=== PATIENT | female | born 1965 ===

== ENCOUNTER 2017-03-22 08:41 | Day surgery (SDC) | payer OTHER ==
[~2017-03-22] VITALS: Ht 162.6 cm; Wt 69.4 kg
[~2017-03-22 08:41] MED LIST: CLON.1 PO; DULO30 PO; DULO60 PO; Desyrel50 MG PO; HYDCHL12.5 PO; INSULANPEN; INSULANPEN SC; LINZESS290 MCG PO; Lisinopril2.5 MG; Lisinopril2.5 MG PO; METF500 PO; Metformin HCl1000 MG PO; Novolog Fl100 UNIT/1; Novolog100 UNIT/1 SC; PRAV20 PO; PRAVASTATIN SOD10 MG PO; Senna Plus Tab1 EACH PO; TRAM50 PO; TRAZ50 PO
[2017-03-22] MEDS ORDERED: NAPR500 PO (10:28)
== END 2017-03-22 13:15 | disposition home or self-care (01) ==
LOC: ORSCMMR 08:41 → ORD 10:15 → ORSCMMR 10:15
DX: E83.119 Hemochromatosis, unspecified (principal); I10 Essential (primary) hypertension; E11.9 Type 2 diabetes mellitus without complications; M79.7 Fibromyalgia; B19.20 Unspecified viral hepatitis C without hepatic coma; F17.210 Nicotine dependence, cigarettes, uncomplicated; Z79.4 Long term (current) use of insulin; Z79.899 Other long term (current) drug therapy
CPT/HCPCS: 77001; 82947; C1788; J0690; J1642; J1885; J2250; J3010; J7120

== ENCOUNTER → 2017-10-23 | Outpatient (CLI) | payer OTHER ==
[~2017-10-23] MED LIST changes: +NAPR500 PO
[2017-10-23 14:28] LABS: Hemoglobin 13.3 g/dL (11.5-16.0); Mean Corpuscular HGB 36.1 pg (26.0-34.0); Mean Corpuscular Volume 103 fL (80-100); Mean Platelet Volume 11.7 fL (9.1-12.4); Platelet Count 273 K/mm3 (150-400); RDW Coefficient Variation 11.7 % (11.7-14.2); RDW Standard Deviation 44.3 fL (35.1-46.3); Red Blood Cell Count 3.68 M/mm3 (3.80-5.20)
[2017-10-23 14:40] LABS: International Normalized Ratio 0.97
[2017-10-23 14:56] LABS: Alanine Aminotransfer (ALT/SGP 39 U/L (12-78); Albumin, Blood 3.6 g/dL (3.4-5.0); Albumin/Globulin Ratio 0.9 (0.8-1.8); Alk Phos 101 U/L (50-136); Anion Gap 8 mmol/L (6-16); Aspartate Aminotrans (AST/SGOT 16 U/L (12-37); Bilirubin, Direct <0.1 mg/dL (0.0-0.3); Bilirubin, Total 0.5 mg/dL (0.1-1.0); Blood Urea Nitrogen 12 mg/dL (8-24); Bun/Creatinine Ratio 30.5 (12.0-20.0); CO2, Blood 28 mmol/L (21-32); Calcium, Blood 9.2 mg/dL (8.5-10.1); Chloride, Blood 99 mmol/L (98-108); Creatinine, Blood 0.39 mg/dL (0.40-1.00); Globulin, Blood 4.1 g/dL (2.2-4.0); Glomerular Filtration Rate >60 (60-); Glucose, Blood 395 mg/dL (70-99); Potassium, Blood 3.7 mmol/L (3.5-5.5); Sodium, Blood 135 mmol/L (136-145); Total Protein, Blood 7.7 g/dL (6.4-8.2)
== END ==
LOC: LAB SHORT 14:00 → LAB 14:00
PROVIDERS: Physician Assistant Medical
DX: B18.2 Chronic viral hepatitis C (principal)
CPT/HCPCS: 36415; 80053; 82248; 85027; 85610

== ENCOUNTER → 2017-11-02 | Outpatient (CLI) | payer OTHER ==
[~2017-11-02] MED LIST changes: +CRUTCH2 XX
== END ==
LOC: LAB EV 19:36 → LAB SHORT 19:36
DX: S70.11XA Contusion of right thigh, initial encounter (principal)
CPT/HCPCS: 82550

== ENCOUNTER 2017-11-03 10:19 | Emergency (ER) | payer OTHER ==
[~2017-11-03] VITALS: Ht 170.2 cm; Wt 99.8 kg
[~2017-11-03 10:19] MED LIST changes: -CRUTCH2 XX
[2017-11-03 11:48] LABS: BASOPHILS ABSOLUTE AUTO 0.08 K/mm3 (0.00-0.23); BASOPHILS PERCENT AUTO 1 % (0-2); EOSINOPHILS ABSOLUTE AUTO 0.21 K/mm3 (0.00-0.68); EOSINOPHILS PERCENT AUTO 3 % (0-6); Hemoglobin 11.7 g/dL (11.5-16.0); IMMATURE GRAN ABSOLUTE AUTO 0.03 K/mm3 (0.00-0.10); IMMATURE GRAN PERCENT AUTO 0 % (0-1); LYMPHOCYTES ABSOLUTE AUTO 2.11 K/mm3 (0.84-5.20); LYMPHOCYTES PERCENT AUTO 26 % (21-46); MONOCYTES ABSOLUTE AUTO 0.67 K/mm3 (0.16-1.47); MONOCYTES PERCENT AUTO 8 % (4-13); Mean Corpuscular HGB 35.7 pg (26.0-34.0); Mean Corpuscular HGB Conc 34.4 g/dL (31.5-36.5); Mean Corpuscular Volume 104 fL (80-100); Mean Platelet Volume 11.2 fL (9.1-12.4); NEUTROPHILS ABSOLUTE AUTO 4.94 K/mm3 (1.96-9.15); NEUTROPHILS PERCENT AUTO 62 % (41-73); Platelet Count 255 K/mm3 (150-400); RDW Coefficient Variation 11.8 % (11.7-14.2); RDW Standard Deviation 45.1 fL (35.1-46.3); Red Blood Cell Count 3.28 M/mm3 (3.80-5.20); White Blood Cell Count 8.04 K/mm3 (4.00-11.30)
[2017-11-03 12:02] LABS: Alanine Aminotransfer (ALT/SGP 28 U/L (12-78); Albumin, Blood 3.3 g/dL (3.4-5.0); Albumin/Globulin Ratio 0.9 (0.8-1.8); Alk Phos 74 U/L (50-136); Anion Gap 5 mmol/L (6-16); Aspartate Aminotrans (AST/SGOT 21 U/L (12-37); Bilirubin, Total 0.3 mg/dL (0.1-1.0); Blood Urea Nitrogen 13 mg/dL (8-24); Bun/Creatinine Ratio 31.2 (12.0-20.0); CO2, Blood 29 mmol/L (21-32); CPK Creatine Kinase 54 U/L (26-193); Calcium, Blood 8.7 mg/dL (8.5-10.1); Chloride, Blood 101 mmol/L (98-108); Creatinine, Blood 0.42 mg/dL (0.40-1.00); Globulin, Blood 3.6 g/dL (2.2-4.0); Glomerular Filtration Rate >60 (60-); Glucose, Blood 382 mg/dL (70-99); Sodium, Blood 135 mmol/L (136-145); Total Protein, Blood 6.9 g/dL (6.4-8.2)
[2017-11-03] MEDS ORDERED: CRUTCH2 XX (12:18)
== END 2017-11-03 13:10 | disposition home or self-care (01) ==
LOC: ER 10:19
PROVIDERS: Internal Medicine
DX: S87.81XA Crushing injury of right lower leg, initial encounter (principal); S92.411A Displaced fracture of proximal phalanx of right great toe, initial encounter for closed fracture; I10 Essential (primary) hypertension; E11.9 Type 2 diabetes mellitus without complications; E78.5 Hyperlipidemia, unspecified; F17.200 Nicotine dependence, unspecified, uncomplicated; Z79.899 Other long term (current) drug therapy; Z79.4 Long term (current) use of insulin; W20.8XXA Other cause of strike by thrown, projected or falling object, initial encounter
CPT/HCPCS: 29515; 80053; 82550; 85025; 96374; 99283-25; J1642

== ENCOUNTER 2018-07-03 09:51 | Day surgery (SDC) | payer OTHER ==
[~2018-07-03] VITALS: Ht 167.6 cm; Wt 65.0 kg
[~2018-07-03 09:51] MED LIST changes: +CRUTCH2 XX; +CYCL10 PO; +IBUP800 PO; +NOVOLOG FL100 UNIT/1 SC; +OXYC10TA19 PO
[2018-07-03] MEDS ORDERED: ESCI20 (11:23)
[2018-07-03] MEDS ORDERED: Neurontin300 MG (11:24)
--- NOTE | 2018-07-03 13:32 | NUR ---
07/03/18 1332 Megha Unger LATE ENTRY AT 1130 i ACCESSED THE PATIENTS MEDIPORT LEFT SIDE 20G 1 IN. PT TOLERATED WELL. FLUSHED 10CC NS. PATENT. BLOOD DRAWN RIGHT FOOT AMONIA LEVEL PER MD ORDER. MEGHA UNGER RN
--- NOTE | 2018-07-03 13:33 | NUR ---
07/03/18 1333 Megha Unger LATE ENTRY AT 1240 DC MEDIPORT. FLUSHED WITH 10CC NS THEN 500 UNITS HEPARIN. PATENT. NO BLEEDING AT SITE AFTER DC. BANDAID PLACED. PT TOLERATED WELL. MEGHA UNGER RN
== END 2018-07-03 13:00 | disposition home or self-care (01) ==
LOC: ORSCSDS 09:51
PROVIDERS: Internal Medicine Gastroenterology
PROC: 0DB68ZX Excision of Stomach, Via Natural or Artificial Opening Endoscopic, Diagnostic (ICD-10-PCS; principal; 2018-07-03 11:30)
DX: K74.60 Unspecified cirrhosis of liver (principal); Z13.810 Encounter for screening for upper gastrointestinal disorder; B19.20 Unspecified viral hepatitis C without hepatic coma; K76.6 Portal hypertension; K31.89 Other diseases of stomach and duodenum; K59.00 Constipation, unspecified
CPT/HCPCS: 82140; 82947; 88305; 88342; J1642; J2704; J7120

== ENCOUNTER 2018-08-13 07:02 | Day surgery (SDC) | payer OTHER ==
[~2018-08-13] VITALS: Ht 160 cm; Wt 63.2 kg
[~2018-08-13 07:02] MED LIST changes: +Adipex-P37.5 MG PO; +ESCI20 PO; +MELO7.5 PO; +MIRALAX17 GM PO; +Neurontin300 MG PO; +Zantac150 MG PO
--- NOTE | 2018-08-13 08:14 | NUR ---
Ambulatory in Day Surgery. Surgical site prepped with 2% Chlorhexidine cloth wipe. History, Chart, Medications and Allergies reviewed before start of procedure. Lungs clear T/O to Auscultation. Patient confirms NPO status and agrees with scheduled surgery. Pre-Op teaching done. Pt verbalizes understanding. Pt has a Mediport and was not aware that this could not be used for surgery. Order received from Dr. Smith for foot IV due to Shirley's refusal for the nursing staff to even look at her arms. Pt resting comfortably at this time.
--- NOTE | 2018-08-13 12:06 | NUR ---
Discharge instructions reviewed with patient. Patient verbalizes understanding. Copy given to patient to take home. Pt c/o clear dressing pulling on hair. Replaced, CDI. Discharged via wheelchair to private car for ride home.
[2019-01-02] MEDS ORDERED: ABAT250V (14:53)
[2019-01-02] MEDS ORDERED: PARO30 PO (14:54)
== END 2018-08-13 23:01 | disposition home or self-care (01) ==
LOC: ORSCMMR 07:02 → ORD 08:30 → ORSCMMR 23:01
PROVIDERS: Surgery
PROC: 0KC20ZZ Extirpation of Matter from Right Neck Muscle, Open Approach (ICD-10-PCS; principal; 2018-08-13 08:30)
DX: M79.5 Residual foreign body in soft tissue (principal); I10 Essential (primary) hypertension; E11.9 Type 2 diabetes mellitus without complications; B19.20 Unspecified viral hepatitis C without hepatic coma; Z79.4 Long term (current) use of insulin; F17.210 Nicotine dependence, cigarettes, uncomplicated; Z79.899 Other long term (current) drug therapy
CPT/HCPCS: 82947; J0330; J2250; J2405; J2704; J3010; J7120

== ENCOUNTER → 2018-11-03 | Outpatient (CLI) | payer OTHER ==
[~2018-11-03] MED LIST changes: +ABAT250V; +Kristalose20 GM PO; +Miralax17 GM PO; +PARO30 PO
== END | disposition home or self-care (01) ==
LOC: LAB SHORT 14:32 → LAB EV 14:32
DX: T24.011D Burn of unspecified degree of right thigh, subsequent encounter (principal)
CPT/HCPCS: 87070; 87205

== ENCOUNTER 2018-12-10 13:48 | Emergency (ER) | payer OTHER ==
[~2018-12-10] VITALS: Ht 157.5 cm; Wt 61.2 kg
[~2018-12-10 13:48] MED LIST changes: -ABAT250V; -Kristalose20 GM PO; -Miralax17 GM PO; -PARO30 PO
[2018-12-10 15:13] LABS: BASOPHILS PERCENT AUTO 1 % (0-2); EOSINOPHILS ABSOLUTE AUTO 0.36 K/mm3 (0.00-0.68); EOSINOPHILS PERCENT AUTO 3 % (0-6); Hematocrit 42.8 % (33.0-51.0); Hemoglobin 14.8 g/dL (11.5-16.0); IMMATURE GRAN ABSOLUTE AUTO 0.04 K/mm3 (0.00-0.10); IMMATURE GRAN PERCENT AUTO 0 % (0-1); LYMPHOCYTES ABSOLUTE AUTO 3.14 K/mm3 (0.84-5.20); LYMPHOCYTES PERCENT AUTO 30 % (21-46); MONOCYTES PERCENT AUTO 8 % (4-13); Mean Corpuscular HGB 35.9 pg (26.0-34.0); Mean Corpuscular HGB Conc 34.6 g/dL (31.5-36.5); Mean Corpuscular Volume 104 fL (80-100); Mean Platelet Volume 11.4 fL (9.1-12.4); NEUTROPHILS PERCENT AUTO 58 % (41-73); Platelet Count 225 K/mm3 (150-400); RDW Coefficient Variation 12.9 % (11.7-14.2); RDW Standard Deviation 49.9 fL (35.1-46.3); Red Blood Cell Count 4.12 M/mm3 (3.80-5.20); White Blood Cell Count 10.54 K/mm3 (4.00-11.30)
[2018-12-10 15:43] LABS: Alanine Aminotransfer (ALT/SGP 39 U/L (12-78); Albumin, Blood 3.5 g/dL (3.4-5.0); Alk Phos 87 U/L (50-136); Anion Gap 5 mmol/L (6-16); Aspartate Aminotrans (AST/SGOT 26 U/L (12-37); Bilirubin, Total 0.4 mg/dL (0.1-1.0); Blood Urea Nitrogen 16 mg/dL (8-24); Bun/Creatinine Ratio 47.3 (12.0-20.0); CO2, Blood 28 mmol/L (21-32); Calcium, Blood 9.1 mg/dL (8.5-10.1); Chloride, Blood 100 mmol/L (98-108); Creatinine, Blood 0.34 mg/dL (0.40-1.00); Globulin, Blood 3.4 g/dL (2.2-4.0); Glomerular Filtration Rate >60 (60-); Glucose, Blood 461 mg/dL (70-99); Sodium, Blood 133 mmol/L (136-145); Total Protein, Blood 6.9 g/dL (6.4-8.2)
[2018-12-10] MEDS ORDERED: Kristalose20 GM PO (16:16)
[2018-12-10] MEDS ORDERED: Miralax17 GM PO (16:16)
[2019-01-02] MEDS ORDERED: ABAT250V (14:53)
[2019-01-02] MEDS ORDERED: PARO30 PO (14:54)
== END 2018-12-10 16:20 | disposition home or self-care (01) ==
LOC: ER 13:48
PROVIDERS: Physician Assistant
DX: K59.09 Other constipation (principal); F11.90 Opioid use, unspecified, uncomplicated; E10.40 Type 1 diabetes mellitus with diabetic neuropathy, unspecified; F17.200 Nicotine dependence, unspecified, uncomplicated; Z88.0 Allergy status to penicillin; Z88.8 Allergy status to other drugs, medicaments and biological substances; Z79.1 Long term (current) use of non-steroidal anti-inflammatories (NSAID)
CPT/HCPCS: 36415; 74018; 80053; 82947; 85025; 96360; 99283-25; J7030

== ENCOUNTER 2019-01-06 07:01 | Day surgery (SDC) | payer OTHER ==
[~2019-01-06] VITALS: Ht 160 cm; Wt 57.0 kg
[~2019-01-06 07:01] MED LIST changes: +ABAT250V; +Kristalose20 GM PO; +Miralax17 GM PO; +PARO30 PO
--- NOTE | 2019-01-06 07:33 | NUR ---
History, Chart, Medications and Allergies reviewed before start of procedure. Patient States Post-Procedure ride home has been arranged. Patient confirms NPO status and agrees with scheduled surgery.
--- NOTE | 2019-01-06 11:35 | NUR ---
AT 1115 GAVE PT TERRELL CRACKERS AND JUICE. TOLERATED WELL. PT TEARFUL ABOUT MISSING A COURT DATE. EMOTIONAL SUPPORT PROVIDED. REPORT TO MARCEL SINGH AFTER CXR DONE. RAD TO CALL SDS WITH REPORT.
--- NOTE | 2019-01-06 12:06 | NUR ---
Discharge instructions reviewed with patient. Patient verbalizes understanding. Copy given to patient to take home. Discharged via wheelchair to private car for ride home.
--- NOTE | 2019-01-07 07:30 | NUR ---
01/07/19 0730 Anat Phillip VERIFICATIONS, AUDITS.
== END 2019-01-06 12:07 | disposition home or self-care (01) ==
LOC: ORSCMMR 07:01 → ORD 08:30 → ORSCMMR 12:07
PROVIDERS: Surgery
PROC: B5131ZA Fluoroscopy of Right Jugular Veins using Low Osmolar Contrast, Guidance (ICD-10-PCS; principal; 2019-01-06 08:30)
PROC: 05HM33Z Insertion of Infusion Device into Right Internal Jugular Vein, Percutaneous Approach (ICD-10-PCS; principal; 2019-01-06 08:30)
PROC: 0JPT0WZ Removal of Totally Implantable Vascular Access Device from Trunk Subcutaneous Tissue and Fascia, Open Approach (ICD-10-PCS; principal; 2019-01-06 08:30)
DX: E83.119 Hemochromatosis, unspecified (principal); T82.514A Breakdown (mechanical) of infusion catheter, initial encounter; I10 Essential (primary) hypertension; E11.9 Type 2 diabetes mellitus without complications; B19.20 Unspecified viral hepatitis C without hepatic coma; F17.210 Nicotine dependence, cigarettes, uncomplicated; Z79.4 Long term (current) use of insulin; Z79.899 Other long term (current) drug therapy
CPT/HCPCS: 77001; 82947; A9270-GY; C1788; J0690; J1100; J1642; J2250; J2405; J2704; J3010; J7120